=== PATIENT | female | born 1970 | race Caucasian/White ===

== ENCOUNTER 2016-12-07 08:57 | Emergency (ER) | payer OTHER ==
[2016-12-07] MEDS ORDERED: Ibuprofen TAB* 600 MG PO ONE (09:39)
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
[2016-12-07] MEDS ORDERED: Ibuprofen TAB* 600 MG ONE (09:41)
--- NOTE | 2016-12-07 10:28 | RAD ---
INDICATION: Left wrist injury. TECHNIQUE: 3 views of the left wrist were obtained. FINDINGS: The bones are in normal alignment. No fracture is seen. Joint spaces appear maintained. IMPRESSION: NO EVIDENCE FOR FRACTURE, IF THE PATIENT'S SYMPTOMS PERSIST RECOMMEND FOLLOW-UP IMAGING.
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
[2016-12-07] MEDS ORDERED: Diazepam TAB(*) 5 MG PO ONE (10:54)
[2016-12-07] MEDS ORDERED: Diazepam TAB(*) 5 MG ONE (11:14)
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
[2016-12-07 12:19] VITALS: BP 124/70
== END 2016-12-07 12:18 | disposition home or self-care (01) ==
LOC: MERGE 08:57 → ED 08:57
DX: S16.1XXA Strain of muscle, fascia and tendon at neck level, initial encounter (principal); S63.502A Unspecified sprain of left wrist, initial encounter; F17.210 Nicotine dependence, cigarettes, uncomplicated; V43.52XA Car driver injured in collision with other type car in traffic accident, initial encounter; Y92.9 Unspecified place or not applicable; T14.8 Other injury of unspecified body region; F41.9 Anxiety disorder, unspecified
CPT/HCPCS: 72040; 99283; A9270-GY

== ENCOUNTER 2016-12-11 08:49 | Emergency (ER) | payer SELFPAY ==
[2016-12-11] MEDS ORDERED: Ketorolac INJ* 30 MG/ML 1 ML VIAL IM ONE (08:57)
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
[2016-12-11 09:13] VITALS: BP 130/81
== END 2016-12-11 09:30 | disposition home or self-care (01) ==
LOC: UCEAST 08:49
DX: M43.6 Torticollis (principal); M50.30 Other cervical disc degeneration, unspecified cervical region; Z88.6 Allergy status to analgesic agent; Z88.8 Allergy status to other drugs, medicaments and biological substances; F17.210 Nicotine dependence, cigarettes, uncomplicated
CPT/HCPCS: 96372; 99211; G0463; J1885

== ENCOUNTER 2017-06-20 10:22 | Emergency (ER) | payer SELFPAY ==
[2017-06-20 12:49] VITALS: BP 114/56
--- NOTE | 2017-06-20 13:15 | UC ---
UC General HPI - HPI Summary HPI Summary: This is a 46 yo female with a h/o prior cervical fusion presents with c/o R sided neck pain and urinary frequency. Neck pain started in the middle of the night when she got up to urinate and stretched her neck. Denies associated arm weakness, numbness or tingling. She has had similar symptoms in the past which generally resolve with use of muscle relaxants. She also noted urinary frequency and spasm. No dyuria or hematuria. - History of Current Complaint Chief Complaint: UCGU Stated Complaint: NECK PAIN - Allergy/Home Medications Allergies/Adverse Reactions: Allergies Allergy/AdvReac Type Severity Reaction Status Date / Time Prochlorperazine Allergy Agitation Verified 08/14/16 13:00 [From Compazine] Tramadol Allergy Vomiting Verified 08/14/16 13:00 Home Medications: Home Medications Ibuprofen [Ibuprofen 200 MG] 1,000 mg PRN 06/20/17 [History] PMH/Surg Hx/FS Hx/Imm Hx Previously Healthy: No - chronic neck pain, s/p fusion Other History Of: Negative For: Anticoagulant Therapy - Surgical History Surgical History: Yes Surgery Procedure, Year, and Place: galbladder, cervical fusion, - Family History Known Family History: Positive: Unknown - ADOPTED - Social History Alcohol Use: Rare Substance Use Type: None Smoking Status (MU): Heavy Every Day Tobacco Smoker Type: Cigarettes Amount Used/How Often: 1/2 PPD - Immunization History Most Recent Influenza Vaccination: 2016 Most Recent Tetanus Shot: up to date Most Recent Pneumonia Vaccination: none Review of Systems Constitutional: Negative Skin: Negative Eyes: Negative ENT: Negative Respiratory: Negative Cardiovascular: Negative Gastrointestinal: Negative Genitourinary: Frequency, Urgency Motor: Negative Neurovascular: Negative Musculoskeletal: Arthralgia, Myalgia Neurological: Negative Psychological: Negative All Other Systems Reviewed And Are Negative: Yes Physical Exam Triage Information Reviewed: Yes Vital Signs: Initial Vital Signs Temp 99.2 F 06/20/17 12:41 Pulse 81 06/20/17 12:41 Resp 18 06/20/17 12:41 BP 114/56 06/20/17 12:41 Pulse Ox 99 06/20/17 12:41 Vital Signs Reviewed: Yes Neck: Positive: Other: - reduced ROM to left Respiratory: Positive: Lungs clear, Normal breath sounds. Negative: Crackles, Rhonchi, Wheezing Cardiovascular: Positive: RRR, No Murmur Abdomen Description: Negative: Nontender - mild suprapubic TTP, CVA Tenderness ( R), CVA Tenderness (L) Musculoskeletal: Positive: Strength Intact Neurological: Positive: Muscle Tone Normal, Other: - sensation intact Diagnostics - Laboratory Diagnostic Studies Completed/Ordered: UA - +blood, LE Course/Dx - Course Course Of Treatment: This is a 46 yo female with c/o neck pain and urinary freq. Treat for UTI and cervical strain. UTI is uncomplicated and requires only 3d of treatment, she c/o assoc yeast inf with abx, so diflucan also sent. Encouraged heat and massage to help with neck pain/spasm - Differential Dx - Multi-Symptom Differential Diagnoses: Urinary Tract Infection, Other - cervical spasms Provider Diagnoses: 1. Cervical strain. 2. UTI Discharge - Discharge Plan Condition: Stable Disposition: HOME Prescriptions: Baclofen TAB* [Lioresal TAB*] 10 mg PO TID #30 tab Fluconazole [Diflucan 150 MG (NF)] 150 mg PO ONCE #1 tab Hydrocodone-Acetaminophen [Hydrocodone/Acetaminophen 5-325 mg] 1 tab PO Q4H PRN #30 tab MDD 6 tabs PRN Reason: Pain Phenazopyridine 200 mg (NF) [Pyridium 200 MG tab] 200 mg PO TID PRN #9 tab PRN Reason: pain/spasm Sulfamethox/Trimethoprim DS* [Bactrim DS 800/160 TAB*] 1 tab PO BID #6 tab Patient Education Materials: Cervical Strain (ED), Urinary Tract Infection in Women (ED) Referrals: Cornelia Camp MD [Primary Care Provider] - If Needed Additional Instructions: Activity: As tolerated Instructions: 1. Take medications as directed 2. Apply hot pack to neck and consider massage
== END 2017-06-20 13:30 | disposition home or self-care (01) ==
LOC: UCEAST 10:22
DX: S16.1XXA Strain of muscle, fascia and tendon at neck level, initial encounter (principal); X50.0XXA Overexertion from strenuous movement or load, initial encounter; Y93.89 Activity, other specified; Y92.009 Unspecified place in unspecified non-institutional (private) residence as the place of occurrence of the external cause; Y99.9 Unspecified external cause status; N39.0 Urinary tract infection, site not specified; Z98.1 Arthrodesis status; Z72.0 Tobacco use
CPT/HCPCS: 81003; 87086; 99212; G0463

== ENCOUNTER 2018-03-13 21:34 | Emergency (ER) | payer BC ==
[2018-03-13 21:47] VITALS: BP 117/74
[2018-03-13] MEDS ORDERED: SUMAtriptan SQ* 6 MG/0.5 ML VIAL SUBCUT ONE (22:20)
[2018-03-13] MEDS ORDERED: Ondansetron ODT TAB* 4 MG PO ONE (22:21)
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
== END 2018-03-13 22:45 | disposition home or self-care (01) ==
LOC: UCEAST 21:34
DX: G43.909 Migraine, unspecified, not intractable, without status migrainosus (principal); Z88.5 Allergy status to narcotic agent; Z88.8 Allergy status to other drugs, medicaments and biological substances; F17.210 Nicotine dependence, cigarettes, uncomplicated
CPT/HCPCS: 96372; 99212; A9270-GY; G0463; J3030

== ENCOUNTER 2018-04-19 22:41 | Emergency (ER) | payer BC ==
[2018-04-19] MEDS ORDERED: Ketorolac INJ* 30 MG/ML 1 ML VIAL IV PUSH ONE (23:08)
[2018-04-19] MEDS ORDERED: Ondansetron ODT TAB* 4 MG PO ONE (23:08)
[2018-04-19] MEDS ORDERED: NS 0.9% 1000 ML* 1,000 ML IV ONE (23:12)
[2018-04-19] MEDS ORDERED: Morphine VIAL* 4 MG/ML VIAL (1 ml vial) IV ONE (23:12)
[2018-04-19 23:24] LABS: ABS Basophils 0.1 10^3/ul (0-0.2); ABS Eosinophils 0.3 10^3/ul (0-0.6); ABS Lymphocytes 2.6 10^3/ul (1.0-4.8); ABS Monocytes 0.5 10^3/ul (0-0.8); ABS Neutrophils 3.6 10^3/ul (1.5-7.7); ABS Nucleated RBC 0 10^3/ul; Eosinophil % 4.4 % (0-6); Hematocrit 38 % (35-47); Hemoglobin 12.8 g/dl (12.0-16.0); Lymphocyte % 35.9 % (25-47); Mean Corpuscular HGB Conc 34 g/dl (31-36); Mean Corpuscular Hemoglobin 33 pg (27-31); Mean Corpuscular Volume 98 fL (80-97); Mean Platelet Volume 7.9 um3 (7.4-10.4); Nucleated Red Blood Cells % 0; Platelet Count 341 10^3/ul (150-450); Red Blood Count 3.86 10^6/ul (4.0-5.4); Red Cell Distribution Width 13 % (10.5-15); White Blood Count 7.1 10^3/ul (3.5-10.8)
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
[2018-04-19 23:45] LABS: EGFR Non-African American 69.5 (>60)
[2018-04-19] MEDS ORDERED: HYDROmorphone INJ* 2 MG/ML CARPUJECT SYRINGE IV SLOW PU ONE (23:46)
[2018-04-20] MEDS ORDERED: Diazepam SYRINGE* 5 MG/ML 2 ML SYRINGE (10 MG total) IV ONE (00:46)
[2018-04-20] MEDS ORDERED: Lidocaine 2% VISCOUS* 15 ML UDC PO ONE (00:49)
[2018-04-20] MEDS ORDERED: Al Hydrox/Mg Hydrox/Simet LIQ* 30 ML UDC PO ONE (00:49)
[2018-04-20] MEDS ORDERED: CMCS: Diazepam INJ (NF) 5 MG/ML 10 ML VIAL (50 MG TOTAL) IV ONE (01:15)
[2018-04-20 01:45] LABS: Urine Appearance Cloudy; Urine Blood Negative (Negative); Urine Color Yellow; Urine Ketones Trace (Negative); Urine Protein 1+(30 mg/dL) (Negative); Urine Urobilinogen Negative (Negative)
[2018-04-20 04:14] VITALS: BP 114/78
--- NOTE | 2018-04-20 07:43 | RAD ---
CLINICAL HISTORY: Right flank pain COMPARISON: None TECHNIQUE: Multiple contiguous axial CT scans were obtained of the abdomen and pelvis, without intravenous contrast enhancement. Coronal and sagittal multiplanar reformations are submitted for review. Oral contrast was not administered. FINDINGS: The study is limited by the lack of intravenous contrast. This limits evaluation of the solid organs and vasculature. LUNG BASES: The lung bases are clear. LIVER: There are low-attenuation rounded hepatic parenchymal lesions. These are too small to definitively characterize. BILE DUCTS: There is ectasia of the common duct that extends to the level of the ampulla. There is no intrahepatic biliary dilatation. GALLBLADDER: The gallbladder is not visualized. Surgical clips are noted in the gallbladder fossa. PANCREAS: The pancreas is normal, without mass or ductal dilatation. SPLEEN: Normal in size and appearance. UPPER GI TRACT: Evaluation of the gastrointestinal tract is limited by incomplete gastric distention. The upper GI tract is unremarkable. SMALL BOWEL AND MESENTERY: The small bowel is normal in contour, course, and caliber. There is no obstruction or dilatation. COLON: The colon is normal in contour, course, caliber. There is no pericolonic inflammatory change. ADRENALS: Normal bilaterally. KIDNEYS: The kidneys are normal in shape, size, contour, and axis. There is no hydronephrosis or nephrolithiasis. BLADDER: The bladder is incompletely distended but is grossly normal. PELVIC ORGANS: The uterus appears to be septate. The uterus and adnexa are otherwise grossly normal for technique. AORTA: The aorta is normal. IVC: Unremarkable LYMPH NODES: There is no lymphadenopathy by size criteria. ABDOMINAL WALL: There is no evidence for abdominal wall hernia. BONES AND SOFT TISSUES: The bones and soft tissues are unremarkable. OTHER: None IMPRESSION: 1. NO HYDRONEPHROSIS OR NEPHROLITHIASIS. 2. THERE ARE MULTIPLE SMALL LOW-ATTENUATION HEPATIC PARENCHYMAL LESIONS. THESE ARE TOO SMALL TO DEFINITIVELY CHARACTERIZE BUT STATISTICALLY ARE MOST LIKELY HEPATIC CYSTS VERSUS HEMANGIOMAS. 3. STATUS POST CHOLECYSTECTOMY 4. THERE IS ECTASIA OF THE COMMON BILE DUCT WHICH EXTENDS TO THE AMPULLA.
== END 2018-04-20 04:16 | disposition home or self-care (01) ==
LOC: ED 22:41
DX: R10.9 Unspecified abdominal pain (principal); R11.2 Nausea with vomiting, unspecified; K76.9 Liver disease, unspecified; K83.9 Disease of biliary tract, unspecified; Z90.49 Acquired absence of other specified parts of digestive tract; Z88.5 Allergy status to narcotic agent; Z88.8 Allergy status to other drugs, medicaments and biological substances; F17.210 Nicotine dependence, cigarettes, uncomplicated
CPT/HCPCS: 36415; 74176; 80053; 81003; 81015; 83690; 84702; 85025; 85379; 86141; 87086; 96360; 96361; 96374; 96375; 96376; 99285; A9270-GY; J1170; J1885; J2270; J3360

== ENCOUNTER 2019-03-15 07:43 | Emergency (ER) | payer BC ==
[2019-03-15 08:01] VITALS: BP 151/81
--- NOTE | 2019-03-15 08:24 | UC ---
Neck Pain HPI - HPI Summary HPI Summary: had c-spine [id number]. has done very well since. 1-2 x a year, after strenuous activity., pt experiences increased neck pain and needs muscle relaxers. 5 days ago she raked lawn and did boxing/weight lifting and has since exp inc R sided neck pain. she has some tingling in R UE but no weakness. last ibuprofen 800mg today at 0600 - History of Current Complaint Chief Complaint: UCBackPain Stated Complaint: NECK/SHOULDER/BACK PAIN Time Seen by Provider: 03/15/19 08:06 Hx Obtained From: Patient Hx Last Menstrual Period: 2008 ?: No Onset/Duration: Gradual Onset Severity: Moderate Pain Intensity: 6 Location: Discrete At: - R side neck Character: Sharp, Stiff, Spasmotic Aggravating Factors: Movement Alleviating Factors: Position, Heat Associated Signs & Symptoms: Negative: Swelling, Redness, Weakness, Headache Related History: Similar Episode/Dx As: - Allergies/Home Medications Allergies/Adverse Reactions: Allergies Allergy/AdvReac Type Severity Reaction Status Date / Time prochlorperazine Allergy Severe Agitation Verified 03/15/19 08:01 [From Compazine] tramadol Allergy Severe Vomiting Verified 03/15/19 08:01 Home Medications: Home Medications Ascorbic Acid [Vitamin C] 1 tab PO DAILY 03/15/19 [History Confirmed 03/15/19] Cholecalciferol (Vitamin D3) [Vitamin D3] 1,000 unit PO DAILY 03/15/19 [History Confirmed 03/15/19] Cyanocobalamin (Vitamin B-12) [Vitamin B-12] 1,000 mcg PO DAILY 03/15/19 [ History Confirmed 03/15/19] Fexofenadine (NF) [Estrellita (NF)] 1 tab PO DAILY 03/15/19 [History Confirmed ] Heliocare Homeopathic 1 tab PO DAILY 03/15/19 [History] L.acidoph,Paracasei, B.lactis [Probiotic] 1 each PO DAILY 03/15/19 [History Confirmed 03/15/19] Magnesium 30 mg PO DAILY 03/15/19 [History Confirmed 03/15/19] Vitamin E 100 unit PO DAILY 03/15/19 [History Confirmed 03/15/19] Zinc Gluconate-Zinc Picolinate [Zinc] 30 mg PO DAILY 03/15/19 [History Confirmed 03/15/19] PMH/Surg Hx/FS Hx/Imm Hx Previously Healthy: Yes Other History Of: Negative For: Anticoagulant Therapy - Surgical History Surgical History: Yes Surgery Procedure, Year, and Place: galbladder, cervical fusion, , ablasion - Family History Known Family History: Positive: Unknown - ADOPTED - Social History Occupation: Employed Full-time - OB RN Lives: With Family Alcohol Use: Occasionally Substance Use Type: None Smoking Status (MU): Current Every Day Smoker Type: Cigarettes Amount Used/How Often: 1/3 PPD Household Exposure Type: Cigarettes - Immunization History Most Recent Influenza Vaccination: 2016 Most Recent Tetanus Shot: up to date Most Recent Pneumonia Vaccination: none Review of Systems All Other Systems Reviewed And Are Negative: Yes Constitutional: Positive: Negative Skin: Positive: Negative. Negative: Rash Respiratory: Positive: Negative. Negative: Cough Cardiovascular: Positive: Negative Musculoskeletal: Positive: Decreased ROM - c-spine Neurological: Positive: Negative. Negative: Headache, Weakness Psychological: Positive: Negative Is Patient Immunocompromised?: No Physical Exam Triage Information Reviewed: Yes Appearance: Well-Appearing, Well-Nourished, Pain Distress - sitting stiffly with ice on R neck Vital Signs: Initial Vital Signs Temp 98.1 F 03/15/19 07:53 Pulse 80 03/15/19 07:53 Resp 18 03/15/19 07:53 BP 151/81 03/15/19 07:53 Pulse Ox 100 03/15/19 07:53 Vital Signs Reviewed: Yes Neck: Positive: Tenderness @ Respiratory: Positive: Lungs clear Cardiovascular Exam: Normal Cardiovascular: Positive: RRR Neurological Exam: Normal Neurological: Positive: Alert Psychological Exam: Normal Skin Exam: Normal Skin: Negative: Rashes Neck Pain Course/Dx - Differential Dx/Diagnosis Differential Dx/HQI/PQRI: Arthritis, Cervical Fracture, Torticollis Provider Diagnosis: Neck pain on right side Discharge - Sign-Out/Discharge Documenting (check all that apply): Patient Departure All imaging exams completed and their final reports reviewed: No Studies - Discharge Plan Condition: Stable Disposition: HOME Prescriptions: Cyclobenzaprine TAB* [Flexeril 10 MG TAB*] 10 mg PO TID PRN #15 tab PRN Reason: Pain predniSONE [Prednisone 20 MG TAB] 20 mg PO DAILY #6 tablet Referrals: Cornelia Camp MD [Primary Care Provider] - 1 Week (if no better) Additional Instructions: apply warm packs to neck start fexeril and prednisone as prescribed. return if pain worsens - Billing Disposition and Condition Condition: STABLE Disposition: Home - Attestation Statements Provider Attestation: I was available for consult. This patient was seen by the ANU. The patient was not presented to , seen by or examined by ri -Washington Valera MD Addendum entered and electronically signed by Asiya Romero NP 03/15/19 08: 37: Addendum Addendum: blood pressure elevated due to pain, will f/u with Dr. Camp for recheck
== END 2019-03-15 08:53 | disposition home or self-care (01) ==
LOC: UCEAST 07:43
DX: M54.2 Cervicalgia (principal); Z88.5 Allergy status to narcotic agent; Z88.8 Allergy status to other drugs, medicaments and biological substances; F17.210 Nicotine dependence, cigarettes, uncomplicated
CPT/HCPCS: 99212; G0463

== ENCOUNTER 2019-03-23 19:03 | Emergency (ER) | payer BC ==
[2019-03-23] MEDS ORDERED: HYDROcodone/ACETAMIN 5-325 MG* 1 TAB PO ONE ×2 (20:11→21:28)
--- NOTE | 2019-03-23 20:20 | UC ---
Neck Pain HPI - HPI Summary HPI Summary: 48-year-old woman comes in with a chief complaint of right-sided neck pain. This started a couple weeks ago. No known trauma. When the patient turns her neck she gets a sharp shooting pain down into the right shoulder. Recently the pain has been getting worse. She's had some intermittent numbness in the right hand third fourth and fifth fingers. When she first wakes up the arm feels slightly weak and painful. After moving around some the strength returns. When the patient moves her right shoulder the pain shoots up into her neck which posterior neck the pain shoots down to her right shoulder. Is also pain in her right trapezius area and underneath the scapula. Patient had neck surgery with fusion in 1997. She's tried ibuprofen and Tylenol Flexeril and prednisone. She had 3 day course of prednisone and that combined with the Flexeril did help quite a bit. When the prednisone ran out the pain came back worse than before. - History of Current Complaint Chief Complaint: UCUpperExtremity Stated Complaint: NECK AND SHOULDER PAIN Time Seen by Provider: 03/23/19 19:58 Hx Last Menstrual Period: ablation Pain Intensity: 6 - Allergies/Home Medications Allergies/Adverse Reactions: Allergies Allergy/AdvReac Type Severity Reaction Status Date / Time prochlorperazine Allergy Severe Agitation Verified 03/23/19 19:21 [From Compazine] tramadol Allergy Severe Vomiting Verified 03/23/19 19:21 PMH/Surg Hx/FS Hx/Imm Hx Previously Healthy: Yes Other History Of: Negative For: Anticoagulant Therapy - Surgical History Surgical History: Yes Surgery Procedure, Year, and Place: galbladder, cervical fusion, , ablasion - Family History Known Family History: Positive: Unknown - ADOPTED - Social History Alcohol Use: Occasionally Substance Use Type: None Smoking Status (MU): Current Every Day Smoker Type: Cigarettes Amount Used/How Often: 1/3 PPD Household Exposure Type: Cigarettes - Immunization History Most Recent Influenza Vaccination: 2016 Most Recent Tetanus Shot: up to date Most Recent Pneumonia Vaccination: none Review of Systems All Other Systems Reviewed And Are Negative: Yes Constitutional: Positive: Negative Skin: Positive: Negative Eyes: Positive: Negative ENT: Positive: Negative Respiratory: Positive: Negative Cardiovascular: Positive: Negative Gastrointestinal: Positive: Negative Motor: Positive: Other - SEE HPI Neurovascular: Positive: Other - SEE HPI Musculoskeletal: Positive: Other: - SEE HPI Neurological: Positive: Other - SEE HPI Psychological: Positive: Negative Is Patient Immunocompromised?: No Physical Exam Triage Information Reviewed: Yes Appearance: Well-Appearing, Well-Nourished, Pain Distress - WITH NECK ROM Vital Signs: Initial Vital Signs Temp 98.6 F 03/23/19 19:14 Pulse 95 03/23/19 19:14 Resp 18 03/23/19 19:14 BP 138/92 03/23/19 19:14 Pulse Ox 100 03/23/19 19:14 Vital Signs Reviewed: Yes Eye Exam: Normal Eyes: Positive: Conjunctiva Clear Neck: Positive: Other: - TENDER RT PARASPINOUS MUSCLES. PAIN WITH ROM. Respiratory: Positive: No respiratory distress Musculoskeletal: Positive: Other: - Patient is tender to palpation on the right side of the neck. Nontender midline of the neck. She's tender to palpation down through the right trapezius and scapula and to the right shoulder. Normal radial pulses bilaterally. Normal capillary refill in both arms. No sensation deficit. Fingers wrists elbows have full range of motion full-strength. The right shoulder has similar range of motion of the left shoulder however when she brings drainage right shoulder up above 90 starts giving her pain in the shoulder and into the right neck. Neurological: Positive: Alert, Muscle Tone Normal Psychological Exam: Normal Psychological: Positive: Normal Response To Family, Age Appropriate Behavior Skin Exam: Normal Neck Pain Course/Dx - Course Course Of Treatment: EXAM: CT Cervical Spine Without Contrast EXAM DATE/TIME: 03/23/2019 8:26 PM CLINICAL HISTORY: 48 years old, female; Prior surgery; Surgery date: 6+ months; Surgery type: Neck fusion; Patient HX: Right sided neck pain after lifting weights and raking yard 4 days ago with decreased rom. ; Additional info: RT sided neck pain, HX fusion in past TECHNIQUE: Imaging protocol: Axial computed tomography images of the cervical spine without intravenous contrast. Coronal and sagittal reformatted images were created and reviewed. Radiation optimization: All CT scans at this facility use at least one of these dose optimization techniques: automated exposure control; mA and/or kV adjustment per patient size (includes targeted exams where dose is matched to clinical indication); or iterative reconstruction. COMPARISON: DX CSP PART SP CERVICAL 2-3 VWS 12/07/2016 11:03 AM FINDINGS: Vertebrae: There is osseous fusion of the C4-5 vertebra which may be due to prior surgical fusion. There is additional disc height loss and endplate degenerative spurring consistent with degenerative disc disease with uncinate process hypertrophy/DJD at C3-4 and C5-6. Discs/Spinal canal/Neural foramina: See Vertebrae Finding. Soft tissues: Unremarkable. Lungs: Lung apices are normal. IMPRESSION: No cervical spine fracture or other acute traumatic CT pathology. I discussed the CT report with the patient and her family I discussed the CT report with the patient and her family. Plan at this time is to continue ibuprofen at the recommended dosage of not more than 2400 mg a day. Going to do prednisone 40 mg a day for 5 days. Her a prescription for hydrocodone. I told the patient did not overdose on acetaminophen as it can kill her. Plan to follow-up with either sports medicine or primary care physician. We discussed that if she gets weakness or numbness that does not resolve she needs to get reevaluated again right away. - Differential Dx/Diagnosis Provider Diagnosis: Cervical radiculopathy Discharge - Sign-Out/Discharge Documenting (check all that apply): Patient Departure All imaging exams completed and their final reports reviewed: No - Discharge Plan Condition: Stable Disposition: HOME Prescriptions: Cyclobenzaprine TAB* [Flexeril 10 MG TAB*] 10 mg PO TID PRN #15 tab MDD 3 PRN Reason: Pain HYDROcodone/ACETAMIN 5-325 MG* [[place] 5-325 TAB*] 1 tab PO Q4H PRN #30 tab MDD 6 PRN Reason: Pain predniSONE TAB* [Deltasone 20 MG TAB*] 40 mg PO DAILY #10 tab Patient Education Materials: Lumbar Radiculopathy (ED) Referrals: [facility] [Provider Group] Cornelia Camp MD [Primary Care Provider] - Additional Instructions: FOLLOW UP WITH SPORTS MEDICINE. GET REEVALUATED SOONER IF YOUR CONDITION WORSENS; WEAKNESS, NUMBNESS OR ANY QUESTIONS OR CONCERNS. - Billing Disposition and Condition Condition: STABLE Disposition: Home
[2019-03-23] MEDS ORDERED: predniSONE TAB* 20 MG PO ONE (21:28)
[2019-03-23] MEDS ORDERED: Cyclobenzaprine TAB* 10 MG PO ONE (21:35)
[2019-03-23 21:58] VITALS: BP 137/77
--- NOTE | 2019-03-24 14:35 | UC ---
- Progress Note Progress Note: XR: IMPRESSION: #. Very mild osteoarthritis of the glenohumeral joint. No change in plan of care Course/Dx - Diagnoses Provider Diagnoses: Cervical radiculopathy Discharge - Sign-Out/Discharge Documenting (check all that apply): Post-Discharge Follow Up All imaging exams completed and their final reports reviewed: Yes - Discharge Plan Condition: Stable Disposition: HOME Prescriptions: Cyclobenzaprine TAB* [Flexeril 10 MG TAB*] 10 mg PO TID PRN #15 tab MDD 3 PRN Reason: Pain HYDROcodone/ACETAMIN 5-325 MG* [[place] 5-325 TAB*] 1 tab PO Q4H PRN #30 tab MDD 6 PRN Reason: Pain predniSONE TAB* [Deltasone 20 MG TAB*] 40 mg PO DAILY #10 tab Patient Education Materials: Cervical Radiculopathy (ED) Forms: *Work Release Referrals: [facility] [Provider Group] Cornelia Camp MD [Primary Care Provider] - Additional Instructions: FOLLOW UP WITH SPORTS MEDICINE. GET REEVALUATED SOONER IF YOUR CONDITION WORSENS; WEAKNESS, NUMBNESS OR ANY QUESTIONS OR CONCERNS. - Billing Disposition and Condition Condition: STABLE Disposition: Home
== END 2019-03-23 22:05 | disposition home or self-care (01) ==
LOC: UCEAST 19:03
DX: M54.12 Radiculopathy, cervical region (principal); M19.011 Primary osteoarthritis, right shoulder; Z88.5 Allergy status to narcotic agent; Z88.8 Allergy status to other drugs, medicaments and biological substances; F17.210 Nicotine dependence, cigarettes, uncomplicated
CPT/HCPCS: 72125; 99213; A9270-GY; G0463; J7512

== ENCOUNTER 2019-06-09 18:54 | Emergency (ER) | payer BC ==
[2019-06-09] MEDS ORDERED: Ondansetron INJ* 2 MG/ML VIAL ONE (20:08)
[2019-06-09] MEDS ORDERED: Morphine 4 MG/ML VIAL (1 ml) 4 MG/ML VIAL ONE (20:08)
[2019-06-09] MEDS ORDERED: Ondansetron INJ* 2 MG/ML VIAL IV ONE (20:09)
[2019-06-09] MEDS ORDERED: Morphine 4 MG/ML VIAL (1 ml) 4 MG/ML VIAL IV ONE (20:09)
[2019-06-09] MEDS ORDERED: HYDROmorphone INJ1* 1 MG/ML SYRINGE IV SLOW PU ONE (20:29)
[2019-06-09 20:30] LABS: Urine Appearance Clear; Urine Bilirubin Negative (Negative); Urine Blood Negative (Negative); Urine Color Straw; Urine Glucose Negative (Negative); Urine Ketones Negative (Negative); Urine Nitrite Negative (Negative); Urine Protein Negative (Negative); Urine Specific Gravity 1.004 (1.010-1.030); Urine Urobilinogen Negative (Negative)
[2019-06-09 20:33] LABS: ABS Basophils 0.1 10^3/ul (0-0.2); ABS Eosinophils 0.1 10^3/ul (0-0.6); ABS Lymphocytes 1.6 10^3/ul (1.0-4.8); ABS Monocytes 0.6 10^3/ul (0-0.8); ABS Neutrophils 6.8 10^3/ul (1.5-7.7); Hematocrit 42 % (35-47); Hemoglobin 14.4 g/dL (12.0-16.0); Lymphocyte % 17.4 %; Mean Corpuscular HGB Conc 34 g/dL (31-36); Mean Corpuscular Hemoglobin 34 pg (27-31); Mean Corpuscular Volume 100 fL (80-97); Mean Platelet Volume 7.5 fL (7.4-10.4); Nucleated Red Blood Cells % 0.1; Platelet Count 338 10^3/uL (150-450); Red Blood Count 4.24 10^6 /uL (3.70-4.87); Red Cell Distribution Width 13 % (10-15); White Blood Count 9.1 10^3/uL (3.5-10.8)
[2019-06-09 20:59] LABS: HCG Pregnancy < 0.60 mIU/mL
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
[2019-06-09 21:00] LABS: ALT 13 U/L (7-52); AST 18 U/L (13-39); Albumin 4.7 g/dL (3.2-5.2); Albumin/Globulin Ratio 1.6 (1-3); Alkaline Phosphatase 46 U/L (34-104); Anion Gap 9 mmol/L (2-11); BUN/Creatinine Ratio 15.9 (8-20); Blood Urea Nitrogen 13 mg/dL (6-24); C Reactive Protein < 1.00 mg/L (<8.01); CO2 Carbon Dioxide 24 mmol/L (22-32); Calcium 9.8 mg/dL (8.6-10.3); Chloride 106 mmol/L (101-111); EGFR African American 90.8 (>60); EGFR Non-African American 75.1 (>60); Glucose 87 mg/dL (70-100); Sodium 139 mmol/L (135-145); Total Protein 7.7 g/dL (6.4-8.9)
[2019-06-09] MEDS ORDERED: Pantoprazole IV* 40 MG IV ONE (22:19)
[2019-06-10] MEDS ORDERED: Iohexol 300* (CONTRAST) 10 ML SDV IV ONE (00:28)
[2019-06-10] MEDS ORDERED: metroNIDAZOLE TAB* 250 MG PO ONE (02:12)
[2019-06-10] MEDS ORDERED: Ciprofloxacin TAB* 500 MG PO ONE (02:12)
[2019-06-10 03:10] VITALS: BP 129/72
== END 2019-06-10 03:08 | disposition home or self-care (01) ==
LOC: ED 18:54
DX: K52.9 Noninfective gastroenteritis and colitis, unspecified (principal); N83.202 Unspecified ovarian cyst, left side; F17.210 Nicotine dependence, cigarettes, uncomplicated; Z88.5 Allergy status to narcotic agent; Z88.8 Allergy status to other drugs, medicaments and biological substances
CPT/HCPCS: 36415; 74177; 76830; 80053; 81003; 83605; 83690; 84702; 85025; 86140; 96374; 96375; 99283; A9270-GY; J1170; J2270; J2405; Q9967

== ENCOUNTER 2019-09-16 17:59 | Emergency (ER) | payer BC ==
--- OUTSIDE RECORDS SUMMARY | 2019-09-16 19:24 | XMS REPORT | Continuity of Care Document ---
:1970 External Reference #:[id number] Author Name Pattie Ocampo MD Address [address] [place] [address] Problems Description No Information Available Social History Type Date Description Comments Sex Unknown Cigarette Use Current Cigarette Smoker 1-5 Cigarettes Daily ETOH Use Occasionally consumes alcohol Recreational Drug Use Does Not Use Drugs Tobacco Use Start: Unknown Patient is a current smoker, smokes every day Smoking Status Reviewed: 08/31/19 Patient is a current smoker, smokes every day Exercise Type/Frequency Does not exercise Seat Belt/Car Seat Always uses seat belt Allergies, Adverse Reactions, Alerts Active Allergies Reaction Severity Comments Date Compazine 11/07/2017 Tramadol 11/07/2017 Nuts 11/07/2017 Medications Active Medications SIG Qnty Indications Ordering Provider Date Pelvic PT Pelvic PT for 1units R10.2 Pattie Ocampo MD 08/31/2019 pain. Dx: r10.2. Vitamin D Unknown Vitamin B12 Unknown Biotin Unknown Probiotic Unknown Magnesium Unknown History Medications Fluconazole 1 tablet then 2tabs Temi Lyles, 07/04/2019 - 150mg second tablet 72 CNM 08/02/2019 Tablets hours later as needed for continuing symptoms Immunizations Description No Information Available Vital Signs Date Vital Result Comment 08/31/2019 11:01am BP Systolic 116 mmHg BP Diastolic 72 mmHg Height 61 inches 5'1" Weight 143.00 lb BMI (Body Mass Index) 27.0 kg/m2 Last Menstrual Period 9764832 5 Parity 4 12/17/2017 8:52am BP Systolic 110 mmHg BP Diastolic 70 mmHg Height 61 inches 5'1" Weight 143.00 lb BMI (Body Mass Index) 27.0 kg/m2 Last Menstrual Period [id number] 5 Parity 4 Results Test Date Facility Test Result H/L Range Note Laboratory test 08/31/2019 [facility] Cytology <pending> [place] [address] [phone] Procedures Date Code Description Status 12/02/2014 36696661 Mammogram Completed 12/02/2014 [id number] Colonoscopy Completed Medical Devices Description No Information Available Encounters Type Date Location Provider Dx Diagnosis Office Visit 08/31/2019 [facility] Pattie Ocampo, Z01.411 Encntr for instrument lens generator exam 11:00a (general) (routine) w abnormal findings R10.2 Pelvic and perineal pain Z87.410 Personal history of cervical dysplasia N32.81 Overactive bladder F43.12 Post-traumatic stress disorder, chronic Assessments Date Code Description Provider 08/31/2019 Z01.411 Encounter for gynecological examination Pattie Ocampo MD (general) (routine) with abnormal findings 08/31/2019 R10.2 Pelvic and perineal pain Pattie Ocampo MD 08/31/2019 Z87.410 Personal history of cervical dysplasia Pattie Ocampo MD 08/31/2019 N32.81 Overactive bladder Pattie Ocampo MD 08/31/2019 F43.12 Post-traumatic stress disorder, chronic Pattie Ocampo MD Plan of Treatment 08/31/2019 - Pattie Ocampo MDZ01.411 Encounter for gynecological examination (general) (routine) with abnormal findingsComments:Maintain routine exercise and healthy diet. Incorporate weight bearing exercise (walking/running with weights) to help prevent osteoporosis. Try to incorporate calcium into your regular diet (Ideally 1200mg/day). Take Vitamin D supplementation(600-800 IU/day ) to assist absorption of the calcium. Call to schedule a mammogram every 1-2 years.Perform periodic breast exams to become familiar with your breast tissue so you are more likely to notice something abnormal and do not need to be concerned aboutthe normal lumps. Return for annual exam in 1 year or earlier if concerns arise. Routine cervical cancer screening has changed. Pap smears are no longer done every year for low-risk women. A combination screening with both a pap smear (looking for abnormal cells) and HPV testing are recommended every 3-5 years. It takes many years for normal cells to become abnormal and many more years forthe abnormal cells to become cancer. Women should still come for a yearly visit and exam. When there is an abnormal pap smear or +HPV testing more frequent screening is recommended.R10.2 Pelvic and perineal painNew Medication:Pelvic PT - Pelvic PT for pain. Dx: r10.2.Comments:There are many causes for pelvic pain including gastrointestinal issues, bladder issues, musculoskeletal issues and instrument lens generator issues. Often time the underlying reason for the pain is hard to identify. Regardless of the underlying cause of the pain, usually the body reacts to a painful stimuli by protecting the area through armando the pelvic/abdominal muscles. This can lead to increased pain and chronically tensed pelvic muscles. Pelvic physical therapists can help identify these tensed muscles and work with you to learn to relax them and release some of the tension. This almost always improves chronic pain even if it may not make it go away completely.Z87.410 Personal history of cervical dysplasiaComments:Repeat papN32.81 Overactive bladderComments:Discussed dietary influences and could also be related to tensed pelvic kkrgnD71.12 Post-traumatic stress disorder, chronicComments: Consider revisiting therapy Functional Status Description No Information Available Mental Status Description No Information Available Referrals Description No Information Available
[2019-09-16 19:37] VITALS: BP 110/71
--- NOTE | 2019-09-16 20:22 | UC ---
FLU HPI - HPI Summary HPI Summary: 48-year-old woman comes in with a chief complaint of influenza-like illness. Started 2 days ago sudden onset bodyaches fevers chills and headache cough chest congestion sore throat. Does have yellow and green rhinorrhea. Been using [id number] medicines which only helped minimally. - History of Current Complaint Chief Complaint: UCRespiratory Stated Complaint: COUGH, AND ACHES Time Seen by Provider: 09/16/19 20:09 Hx Last Menstrual Period: ablation Pain Intensity: 6 - Allergy/Home Medications Allergies/Adverse Reactions: Allergies Allergy/AdvReac Type Severity Reaction Status Date / Time prochlorperazine Allergy Severe Agitation Verified 09/16/19 19:37 [From Compazine] tramadol Allergy Severe Vomiting Verified 09/16/19 19:37 banana Allergy GI Upset Verified 09/16/19 19:37 peanut Allergy Anaphylatic Verified 09/16/19 19:37 Shock AVACADO Allergy GI Upset Uncoded 04/17/19 15:02 Home Medications: Home Medications Dextromethorphan Hb/Doxylamine [Night Time Cough Liquid] 237 ml PO Q6HR [History Confirmed 09/16/19] PMH/Surg Hx/FS Hx/Imm Hx Previously Healthy: Yes Other History Of: Negative For: Anticoagulant Therapy - Surgical History Surgical History: Yes Surgery Procedure, Year, and Place: galbladder, cervical fusion, , ablasion - Family History Known Family History: Positive: Unknown - ADOPTED - Social History Alcohol Use: Weekly Alcohol Amount: 4-5 drinks per week Substance Use Type: None Smoking Status (MU): Current Some Day Smoker Type: Cigarettes Amount Used/How Often: socially Household Exposure Type: Cigarettes - Immunization History Most Recent Influenza Vaccination: 2016 Most Recent Tetanus Shot: up to date Most Recent Pneumonia Vaccination: none Review of Systems All Other Systems Reviewed And Are Negative: Yes Constitutional: Positive: Fever, Chills, Fatigue, Other - SEE HPI Skin: Positive: Negative Eyes: Positive: Negative ENT: Positive: Sore Throat, Nasal Discharge, Sinus Congestion Respiratory: Positive: Cough, Other - SEE HPI Cardiovascular: Positive: Negative Gastrointestinal: Positive: Negative Motor: Positive: Negative Neurovascular: Positive: Negative Musculoskeletal: Positive: Myalgia Neurological: Positive: Headache Psychological: Positive: Negative Is Patient Immunocompromised?: No Physical Exam Triage Information Reviewed: Yes Appearance: No Pain Distress, Well-Nourished, Ill-Appearing - MILD Vital Signs: Initial Vital Signs Temp 98.7 F 09/16/19 19:32 Pulse 91 09/16/19 19:32 Resp 16 09/16/19 19:32 BP 110/71 09/16/19 19:32 Pulse Ox 98 09/16/19 19:32 Vital Signs Reviewed: Yes Eye Exam: Normal Eyes: Positive: Conjunctiva Clear ENT: Positive: Pharyngeal erythema, Nasal congestion, Nasal drainage, TMs normal Neck: Positive: Supple Respiratory: Positive: Lungs clear, Normal breath sounds, No respiratory distress Cardiovascular: Positive: RRR Musculoskeletal: Positive: Strength Intact, ROM Intact Neurological: Positive: Alert, Muscle Tone Normal Psychological: Positive: Age Appropriate Behavior Skin Exam: Normal Flu Course/Dx - Course Course Of Treatment: DISCUSSED VIRAL VERSES BACTERIAL INFECTIONS AND THE ROLE OF ANTIBIOTICS. THE PATIENT PREFERS TO BE ON ANTIBIOTICS AT THIS TIME. Patient has influenza-like illness however the influenza A and B were negative. At this time we'll treat with Tamiflu because of the influenza's symptoms. Patient will follow-up with her primary care doctor get reevaluated sooner if worse or any questions or concerns. - Differential Dx/Diagnosis Provider Diagnosis: Influenza-like illness, Upper respiratory infection Discharge ED - Sign-Out/Discharge Documenting (check all that apply): Patient Departure All imaging exams completed and their final reports reviewed: No Studies - Discharge Plan Condition: Stable Disposition: HOME Prescriptions: Amoxicillin/Clavulanate TAB* [Augmentin TAB 875*] 875 mg PO BID #19 tab Oseltamivir CAP* [Tamiflu CAP*] 75 mg PO BID #9 cap Patient Education Materials: Influenza (ED), Upper Respiratory Infection (ED) Forms: *Work Release Referrals: [facility] [facility] [Outside] Additional Instructions: FOLLOW UP WITH YOUR DOCTOR IF NOT COMPLETELY IMPROVED. GET RECHECKED SOONER IF YOUR CONDITION WORSENS OR ANY QUESTIONS OR CONCERNS. - Billing Disposition and Condition Condition: STABLE Disposition: Home
[2019-09-16 20:24] LABS: Influenza A Molecular NEGATIVE (Negative); Influenza B Molecular NEGATIVE (Negative)
[2019-09-16] MEDS ORDERED: Amoxicillin/Clavulanate TAB* 875 MG PO ONE (20:42)
[2019-09-16] MEDS ORDERED: Oseltamivir CAP* 75 MG CAP PO ONE (20:42)
== END 2019-09-16 20:58 | disposition home or self-care (01) ==
LOC: UCEAST 17:59
DX: J06.9 Acute upper respiratory infection, unspecified (principal); J11.1 Influenza due to unidentified influenza virus with other respiratory manifestations; F17.210 Nicotine dependence, cigarettes, uncomplicated; Z88.5 Allergy status to narcotic agent; Z91.010 Allergy to peanuts; Z91.018 Allergy to other foods
CPT/HCPCS: 99213; A9270-GY; G0463